=== PATIENT | female | born 1995 | race Hispanic/Latino ===

== ENCOUNTER → 2019-07-09 | Outpatient (CLI) | payer OTHER | END | disposition home or self-care (01) | LOC: RAH 08:52 | PROVIDERS: ATTEND Specialist | DX: R10.2 Pelvic and perineal pain (principal); Z97.5 Presence of (intrauterine) contraceptive device | CPT/HCPCS: 36415; 72192; 84703 ==

== ENCOUNTER 2021-01-26 22:39 | Observation (INO) | payer BC, OTHER, MEDICAID ==
[~2021-01-26] VITALS: Ht 162.6 cm; Wt 67.6 kg
[2021-01-26] MEDS ORDERED: PREN-196 PO (22:53)
[2021-01-26] MEDS ORDERED: LACTATED RINGERS 1000ML 1,000 ML IV SCH (23:00)
== END 2021-01-27 00:20 | disposition home or self-care (01) ==
LOC: EDH 22:39 → LDH 22:40
PROVIDERS: ADMIT Specialist; ATTEND Specialist
DX: O42.92 Full-term premature rupture of membranes, unspecified as to length of time between rupture and onset of labor (principal); O34.83 Maternal care for other abnormalities of pelvic organs, third trimester; N75.0 Cyst of Bartholin's gland; Z3A.38 38 weeks gestation of pregnancy
CPT/HCPCS: 59025; 99283; G0378

== ENCOUNTER 2021-01-31 05:15 | Inpatient (IN) | payer BC, OTHER, MEDICAID ==
[~2021-01-31] VITALS: Ht 162.6 cm; Wt 67.1 kg
[~2021-01-31 05:15] MED LIST: PREN-196 PO
[2021-01-31 05:35] VITALS: BP 133/90
[2021-01-31 05:42] LABS: APPEARANCE,URINE Clear (CLEAR); BILIRUBIN,URINE Negative (NEGATIVE); COLOR,URINE Yellow (YELLOW); GLUCOSE, URINE (UA) Negative (NEGATIVE); KETONES,URINE Negative (NEGATIVE); LEUKOCYTE ESTERASE ,URINE Negative (NEGATIVE); NITRATE,URINE Negative (NEGATIVE); OCCULT BLOOD,URINE Negative (NEGATIVE); PH,URINE 7.5 (5.0-8.0); PROTEIN,URINE Negative (NEGATIVE); UROBILINOGEN,URINE 0.2 mg/dL (0.2-1.0)
[2021-01-31] MEDS ORDERED: LACTATED RINGERS 1000ML IV PRN (05:45)
[2021-01-31] MEDS ORDERED: LACTATED RINGERS 1000ML 1,000 ML IV PRN (06:00)
[2021-01-31] MEDS ORDERED: NALOXONE HCL 0.4 MG/1 ML ML IV PRN (06:00)
[2021-01-31] MEDS ORDERED: PROMETHAZINE HCL 25 MG/ML 1ML AMPULE IM PRN (06:00)
[2021-01-31] MEDS ORDERED: LACTATED RINGERS 500 ML 500 ML IV PRN (06:00)
[2021-01-31] MEDS ORDERED: OXYTOCIN-LR 20 UNITS/1000 ML 1,000 ML IV SCH ×2 (06:00)
[2021-01-31] MEDS ORDERED: EPHEDRINE SULFATE 50 MG/ML AMPULE IVP PRN (06:00)
[2021-01-31] MEDS ORDERED: MEPERIDINE-PF 50 MG/ML SYG IVP PRN (06:00)
[2021-01-31] MEDS ORDERED: PNV11TAB5 PO (06:02)
[2021-01-31] MEDS ORDERED: CALC500T7 PO (06:02)
[2021-01-31 06:10] LABS: HEMATOCRIT 33.6 % (36-48); MEAN CORPUSCULAR HEMOGLOBIN 29.6 pg (27.0-33.0); MEAN CORPUSCULAR HGB CONC 33.3 g/dL (32.0-36.0); MEAN CORPUSCULAR VOLUME 88.9 fL (79-99); RED BLOOD CELL COUNT(AUTO) 3.78 MIL/uL (4.00-5.50); RED CELL DISTRIBUTION WIDTH 13.2 % (11.0-15.5); WHITE BLOOD COUNT (AUTO) 11.2 K/uL (4.8-10.8)
[2021-01-31] MEDS ORDERED: OXYTOCIN-LR 20 UNITS/1000 ML 1,000 ML IV ONE (06:18)
[2021-01-31] MEDS ORDERED: LACTATED RINGERS 1000ML 1,000 ML IV ONE (06:38)
[2021-01-31] MEDS ORDERED: ACETAMINOPHEN WITH CODEINE 1 TAB TAB PO PRN (10:30)
[2021-01-31] MEDS ORDERED: ACETAMINOPHEN 325 MG TAB PO PRN (10:30)
[2021-01-31] MEDS ORDERED: BENZOCAINE/LANOLIN/ALOE VERA 60 ML AEROSOL TP PRN (10:30)
[2021-01-31] MEDS ORDERED: DIPH,PERTUSS(ACELL),TET VAC/PF 0.5 ML VIAL IM PRN (10:30)
[2021-01-31] MEDS ORDERED: WITCH HAZEL 1 PAD TP PRN (10:30)
[2021-01-31] MEDS ORDERED: LANOLIN 30GM OINTMENT TP PRN (10:30)
[2021-01-31 12:04] VITALS: BP 126/60
[2021-01-31] MEDS: IBUPROFEN 600 MG TABLET PO PRN ×2 (13:00→20:08)
[2021-01-31 15:09] LABS: RAPID PLASMA REAGIN NONREACTIVE (NONREACTIVE)
[2021-01-31 16:10] VITALS: BP 115/60
[2021-01-31 19:35] VITALS: BP 120/65
[2021-01-31] MEDS: DOCUSATE SODIUM 100 MG CAP PO SCH (21:14)
[2021-01-31 23:36] VITALS: BP 122/73
[2021-02-01 03:40] VITALS: BP 111/68
[2021-02-01] MEDS: IBUPROFEN 600 MG TABLET PO PRN (03:51)
[2021-02-01 07:33] VITALS: BP 119/74
[2021-02-01 08:13] LABS: HEPATITIS Bs ANTIGEN SCREEN P Negative (Negative)
[2021-02-01] MEDS: DOCUSATE SODIUM 100 MG CAP PO SCH (09:00)
[2021-02-01 11:15] VITALS: BP 117/69
[2021-02-01 19:36] VITALS: BP 127/79
== END 2021-02-01 20:30 | disposition home or self-care (01) | DRG 807 ==
LOC: EDH 05:15 → OBSVTOIN 05:16 → LDH 05:16 → WSH 11:50
PROVIDERS: ADMIT Specialist; ATTEND Specialist
PROC: 10E0XZZ Delivery of Products of Conception, External Approach (ICD-10-PCS; principal; 2021-01-31)
PROC: 3E0234Z Introduction of Serum, Toxoid and Vaccine into Muscle, Percutaneous Approach (ICD-10-PCS; 2021-01-31)
DX: O80 Encounter for full-term uncomplicated delivery (principal); Z37.0 Single live birth; Z3A.39 39 weeks gestation of pregnancy; Z23 Encounter for immunization
CPT/HCPCS: 36415; 81003; 85027; 86592; 86701; 86850; 86870; 86900; 86901; 86922; 87340; 87390; 90715; G0378; J2175; J2550; J2590; J7120